=== PATIENT | female | born 1995 | race Caucasian/White ===

== ENCOUNTER 2022-03-26 16:49 | Emergency (ER) | payer SELFPAY ==
[~2022-03-26] VITALS: Ht 160 cm; Wt 85.7 kg
[2022-03-26 17:13] LABS: HEMOGLOBIN 9.5 gm/dl (12.3-15.3); RED BLOOD COUNT 4.1 M/UL (4.00-5.10); WHITE BLOOD COUNT 7.1 K/UL (4.5-11.0)
[2022-03-26 17:33] LABS: BUN/CREATININE RATIO 14 (0-10)
== END 2022-03-26 21:10 | disposition home or self-care (01) ==
LOC: ER1 16:49
PROVIDERS: Emergency Medicine
DX: O99.891 Other specified diseases and conditions complicating pregnancy (principal); R06.00 Dyspnea, unspecified; R55 Syncope and collapse; R07.9 Chest pain, unspecified; O21.9 Vomiting of pregnancy, unspecified; Z3A.35 35 weeks gestation of pregnancy
CPT/HCPCS: ECHO; 80053; 82550; 82553; 84484; 85025; 85610; 85730; 93005; 93306; 96374; 96375; 99285; C9113; J2405; Q9967